=== PATIENT | female | born 1960 | race Caucasian/White ===

== ENCOUNTER 2022-01-28 14:42 | Outpatient (CLI) | payer BC | END 2022-01-28 14:43 | disposition home or self-care (01) | LOC: SCSMRI 14:42 | PROVIDERS: ATTEND Orthopaedic Surgery Hand Surgery | DX: S63.591A Other specified sprain of right wrist, initial encounter (principal); M25.431 Effusion, right wrist; M19.031 Primary osteoarthritis, right wrist; M67.431 Ganglion, right wrist ==

== ENCOUNTER 2022-05-21 13:02 | Outpatient (CLI) | payer BC ==
[2022-05-21 13:47] LABS: #Eosinphils 0.1 10x3/uL (0.0-0.5); #Monocytes 0.6 10x3/uL (0.0-1.1); #Neutrophils 8.5 10x3/uL (1.5-8.4); %Basophils 0.4 % (0.0-2.0); %Eosinophils 0.8 % (0.0-6.0); %Lymphocytes 17.9 % (18.0-47.0); %Monocytes 5.2 % (0.0-10.0); %Neutrophils 75.4 % (40.0-75.0); Bilirubin Neg (Negative); Blood, Urine 10 (Negative); Clarity Clear (Clear); Glucose, Urine (Dipstick) Normal (Negative); Hemoglobin 13.5 g/dL (12.0-15.5); Ketone, Urine Negative (Negative); Leukocyte Negative (Negative); Mean Corpuscular HGB CONC 34.3 g/dL (32.0-36.0); Mean Corpuscular Hemoglobin 30.4 pg (27.0-33.0); Mean Corpuscular Volume 88.7 fl (81.6-98.3); Mean Platelet Volume 9.6 fl (7.4-10.4); Nitrite Negative (Negative); Platelet Count 397 10x3/uL (150-450); Protein, Urine (Dipstick) Negative (Neg-Trace); RBC Distribution Width 12.4 % (11.5-14.5); Red Blood Cell (RBC) Count 4.44 10x6/uL (3.90-5.03); Urobilinogen Normal mg/dL (Less than 2); White Blood Cell (WBC) Count 11.3 10x3/uL (3.5-10.5)
== END 2022-05-21 13:03 | disposition home or self-care (01) ==
LOC: LABBT 13:02
PROVIDERS: ATTEND Orthopaedic Surgery Hand Surgery
DX: Z01.818 Encounter for other preprocedural examination (principal); M67.431 Ganglion, right wrist; S63.591A Other specified sprain of right wrist, initial encounter; M18.10 Unilateral primary osteoarthritis of first carpometacarpal joint, unspecified hand
CPT/HCPCS: 81003; 85025; 93005; 93010

== ENCOUNTER 2022-05-25 05:26 | Day surgery (SDC) | payer BC ==
[2022-05-20 09:46] VITALS: BMI 38.0
[2022-05-25] MEDS ORDERED: EPINEPHrine 1 MG/ML AMP ONE (06:10)
[2022-05-25] MEDS ORDERED: Neomycin-Polymyxin 1 ML AMP ONE (06:10)
[2022-05-25] MEDS ORDERED: Bacitracin Zinc Ointment 30 gm TUBE ONE (06:10)
[2022-05-25] MEDS ORDERED: Bupivacaine PF 0.5% 30 ML VIAL ONE (06:10)
[2022-05-25] MEDS ORDERED: Fentanyl 250 MCG/5 ML VIAL ONE (06:23)
[2022-05-25] MEDS ORDERED: Sodium Chloride 0.9% 100 ML ONE (06:55)
[2022-05-25] MEDS ORDERED: CEFAZOLIN 2 GM VIAL ONE (06:55)
[2022-05-25] MEDS ORDERED: PROPOFOL 200 MG/20 ML VIAL ONE (07:13)
[2022-05-25] MEDS ORDERED: Dexamethasone 20 MG/5 ML VIAL ONE (07:13)
[2022-05-25] MEDS ORDERED: Lidocaine 1% PF 5 ML VIAL ONE (07:13)
[2022-05-25] MEDS ORDERED: Ondansetron PF 4 MG/2 ML Vial ONE (07:13)
[2022-05-25] MEDS ORDERED: Ketorolac Tromethamine 30 MG/ML VIAL ONE ×2 (07:13→09:19)
[2022-05-25] MEDS ORDERED: Fentanyl 100 MCG/2 ML VIAL ONE (09:35)
== END 2022-05-25 10:45 | disposition home or self-care (01) ==
LOC: SDC 05:26
PROVIDERS: ATTEND Orthopaedic Surgery Hand Surgery
PROC: 0RBN4ZZ Excision of Right Wrist Joint, Percutaneous Endoscopic Approach (ICD-10-PCS; principal; 2022-05-25)
PROC: 0PBK0ZZ Excision of Right Ulna, Open Approach (ICD-10-PCS; principal; 2022-05-25)
DX: S63.591A Other specified sprain of right wrist, initial encounter (principal); M25.831 Other specified joint disorders, right wrist; M65.88 Other synovitis and tenosynovitis, other site; E78.5 Hyperlipidemia, unspecified; E03.9 Hypothyroidism, unspecified; E66.9 Obesity, unspecified; Z68.38 Body mass index [BMI] 38.0-38.9, adult; Z86.16 Personal history of COVID-19; Z87.891 Personal history of nicotine dependence; Z79.84 Long term (current) use of oral hypoglycemic drugs; Z79.890 Hormone replacement therapy; Z79.899 Other long term (current) drug therapy; Z88.2 Allergy status to sulfonamides
CPT/HCPCS: C1713; J0171; J1100; J1885; J2405; J2704; J3010; J3490; S0020

== ENCOUNTER 2023-07-28 14:10 | Outpatient (CLI) | payer BC ==
[2023-07-28 15:18] LABS: #Monocytes 0.7 10x3/uL (0.0-1.1); #Neutrophils 10.5 10x3/uL (1.5-8.4); %Basophils 0.1 % (0.0-2.0); %Eosinophils 0.2 % (0.0-6.0); %Lymphocytes 17.9 % (18.0-47.0); %Monocytes 4.8 % (0.0-10.0); %Neutrophils 76.6 % (40.0-75.0); Hematocrit 39.8 % (34.9-44.5); Hemoglobin 13.2 g/dL (12.0-15.5); Mean Corpuscular HGB CONC 33.2 g/dL (32.0-36.0); Mean Corpuscular Hemoglobin 30.3 pg (27.0-33.0); Mean Corpuscular Volume 91.3 fl (81.6-98.3); Mean Platelet Volume 9.8 fl (7.4-10.4); Platelet Count 381 10x3/uL (150-450); RBC Distribution Width 12.6 % (11.5-14.5); Red Blood Cell (RBC) Count 4.36 10x6/uL (3.90-5.03); White Blood Cell (WBC) Count 13.7 10x3/uL (3.5-10.5)
[2023-07-28 15:36] LABS: Anion Gap 13 mmol/L (10-20); BUN (Urea Nitrogen) 13 mg/dL (9.8-20.1); Calc. Creatinine Clearance 0 mL/min (70-130); Calcium 9.3 mg/dL (7.8-10.44); Carbon Dioxide 28 mmol/L (23-31); Chloride 104 mmol/L (98-107); Estimated GFR 89; Glucose 109 mg/dL (80-115); Sodium 141 mmol/L (136-145)
== END 2023-07-28 14:11 | disposition home or self-care (01) ==
LOC: LABBT 14:10
PROVIDERS: ATTEND Orthopaedic Surgery Hand Surgery
DX: Z01.818 Encounter for other preprocedural examination (principal); S52.23 Oblique fracture of shaft of ulna
CPT/HCPCS: 80048; 85025; 93005; 93010

== ENCOUNTER 2023-08-02 05:58 | Day surgery (SDC) | payer BC ==
[2023-07-28 14:33] VITALS: BMI 36.5
[2023-08-02] MEDS ORDERED: fentaNYL PF 100 MCG/2 ML SYRINGE ONE (06:23)
[2023-08-02] MEDS ORDERED: Dexamethasone 20 MG/5 ML VIAL ONE (06:23)
[2023-08-02] MEDS ORDERED: PROPOFOL 20 ML ONE (06:23)
[2023-08-02] MEDS ORDERED: Midazolam HCl 2 mg/2 ml Vial ONE (06:23)
[2023-08-02] MEDS ORDERED: Lidocaine 1% PF 5 ML VIAL ONE (06:23)
[2023-08-02] MEDS ORDERED: Ondansetron PF 4 MG/2 ML Vial ONE (06:23)
[2023-08-02] MEDS ORDERED: Bacitracin Zinc Ointment 30 gm TUBE ONE (06:35)
[2023-08-02] MEDS ORDERED: Bupivacaine PF 0.5% 30 ML VIAL ONE (06:36)
[2023-08-02 06:45] LABS: #Eosinphils 0.1 thou/uL (0.0-0.7); #Monocytes 0.8 thou/uL (0.11-0.59); #Neutrophils 10.3 thou/uL (1.40-6.50); %Basophils 0.3 % (0.0-1.0); %Eosinophils 0.5 % (0.0-10.0); %Lymphocytes 19.3 % (21.0-51.0); %Monocytes 5.9 % (0.0-10.0); %Neutrophils 73.5 % (42.0-75.0); Hematocrit 40.7 % (36.0-47.0); Hemoglobin 13.3 g/dL (12.0-16.0); Mean Corpuscular HGB CONC 32.7 g/dL (32.0-36.0); Mean Corpuscular Hemoglobin 30.5 pg (27.0-31.0); Mean Corpuscular Volume 93.3 fl (78.0-98.0); Mean Platelet Volume 9.7 fL (7.4-10.4); Platelet Count 366 10x3/uL (130-400); RBC Distribution Width 12.6 % (11.5-14.5); Red Blood Cell (RBC) Count 4.36 mill/uL (4.20-5.40)
[2023-08-02] MEDS ORDERED: CEFAZOLIN 2 GM VIAL ONE (07:05)
[2023-08-02] MEDS ORDERED: Sodium Chloride 0.9% 100 ML ONE (07:06)
[2023-08-02] MEDS ORDERED: HYDROmorphone 2 MG/ML VIAL ONE (07:31)
[2023-08-02] MEDS ORDERED: ePHEDrine Sulfate 50 MG/10 ML VIAL ONE (07:34)
[2023-08-02] MEDS ORDERED: Ketorolac Tromethamine 30 MG (1 mL) VIAL ONE (10:19)
[2023-08-02] MEDS ORDERED: Ropivacaine 0.5% HCl/PF (150 MG/30 ML VIAL) ONE (10:55)
== END 2023-08-02 13:13 | disposition home or self-care (01) ==
LOC: SDC 05:58
PROVIDERS: ATTEND Orthopaedic Surgery Hand Surgery
PROC: 0PSK04Z Reposition Right Ulna with Internal Fixation Device, Open Approach (ICD-10-PCS; principal; 2023-08-02)
DX: S52.23 Oblique fracture of shaft of ulna (principal); M18.0 Bilateral primary osteoarthritis of first carpometacarpal joints; M02.30 Reiter's disease, unspecified site; M67.40 Ganglion, unspecified site; E78.00 Pure hypercholesterolemia, unspecified; Z79.899 Other long term (current) drug therapy; Z88.2 Allergy status to sulfonamides
CPT/HCPCS: 85025; 86140; C1713; C1874; J0665; J1100; J1170; J1885; J2250; J2405; J2704; J3490